=== PATIENT | female | born 1990 | race Caucasian/White ===

== ENCOUNTER 2017-10-15 17:11 | Emergency (ER) | payer OTHER | END 2017-10-15 17:53 | disposition home or self-care (01) | LOC: M ED 17:11 | DX: Z77.21 Contact with and (suspected) exposure to potentially hazardous body fluids (principal); X58.XXXA Exposure to other specified factors, initial encounter; Y92.9 Unspecified place or not applicable; Y93.9 Activity, unspecified; Y99.0 Civilian activity done for income or pay | CPT/HCPCS: 99284 ==

== ENCOUNTER → 2019-06-26 | Outpatient (CLI) | payer OTHER | LOC: M LAB 14:30 | PROVIDERS: ATTEND Obstetrics & Gynecology | DX: N91.2 Amenorrhea, unspecified (principal) ==

== ENCOUNTER → 2020-06-15 | Outpatient (CLI) | payer OTHER | LOC: M LABSMTC 11:44 | PROVIDERS: ATTEND Pediatrics | DX: Z11.59 Encounter for screening for other viral diseases (principal) ==

== ENCOUNTER → 2021-05-08 | Outpatient (REF) | LOC: M EMP 07:47 | PROVIDERS: ATTEND Family Medicine | DX: Z11.52 Encounter for screening for COVID-19 (principal) ==

== ENCOUNTER → 2021-11-20 | Outpatient (REF) ==
[2021-11-20 17:09] LABS: RSV AMPLIFICATION NEGATIVE (NEGATIVE)
== END ==
LOC: M EMP 16:01
PROVIDERS: ATTEND Family Medicine
DX: Z20.822 Contact with and (suspected) exposure to COVID-19 (principal)

== ENCOUNTER → 2021-12-18 | Outpatient (REF) | LOC: M EMP 09:15 | PROVIDERS: ATTEND Family Medicine | DX: Z20.822 Contact with and (suspected) exposure to COVID-19 (principal) ==

== ENCOUNTER → 2022-05-08 | Outpatient (REF) | LOC: M EMP 10:06 | PROVIDERS: ATTEND Family Medicine | DX: Z20.822 Contact with and (suspected) exposure to COVID-19 (principal) ==

== ENCOUNTER → 2023-04-08 | Outpatient (REF) | payer BC | LOC: M SFHCDERM 14:05 | PROVIDERS: ATTEND Nurse Practitioner Family | DX: Z53.9 Procedure and treatment not carried out, unspecified reason (principal) ==

== ENCOUNTER → 2023-07-23 | Outpatient (REF) | LOC: M EMP 08:27 | PROVIDERS: ATTEND Family Medicine | DX: Z11.52 Encounter for screening for COVID-19 (principal) ==

== ENCOUNTER → 2023-11-19 | Outpatient (REF) | payer BC | LOC: M SFHCWAGY 15:16 | PROVIDERS: ATTEND Nurse Practitioner Family | DX: Z12.4 Encounter for screening for malignant neoplasm of cervix (principal) | CPT/HCPCS: 87624; G0123 ==

== ENCOUNTER → 2025-07-15 | Outpatient (CLI) | payer BC ==
[2025-07-15 07:46] LABS: PLATELET COUNT, AUTOMATED 317 10^3/uL (150-450)
[2025-07-15 08:15] LABS: C REACTIVE PROTEIN QUANTITATIV < 0.50 MG/DL (<1.0); RHEUMATOID FACTOR QUANT < 3.5 IU/ML (<14)
[2025-07-20 00:08] LABS: LYME TOTAL ANTIBODY CIA <= 0.90 Index (<=0.90)
== END ==
LOC: M LAB 06:27
PROVIDERS: ATTEND Physician Assistant
DX: R53.83 Other fatigue (principal); M79.10 Myalgia, unspecified site; R59.0 Localized enlarged lymph nodes